=== PATIENT | male | born 1970 | race Two or more races ===

== ENCOUNTER 2024-04-12 12:19 | Emergency (ER) | payer MEDICAID, OTHER ==
[~2024-04-12] VITALS: Ht 190.5 cm; Wt 52.0 kg
--- NOTE | 2024-04-12 15:07 | ED.PDOC ---
General HPI Comments A 53 YEAR OLD MALE PRESENTS TO THE ED WITH CHIEF COMPLAINT OF HEMATURIA. PATIENT REPORTS THAT HE HAS BEEN EXPERIENCING HEMATURIA WITH SOME DYSURIA FOR THE PAST 2 DAYS. ALSO, PT'S BLOOD SUGAR ELEVATED BECAUSE HE DID NOT TAKE HIS DM MEDICATION TODAY. PATIENT DENIES ANY ABDOMINAL PAIN, LOW BACK PAIN, N/V/D, DIZZINESS, FEVER, FLANK PAIN, OR CHILLS. NO OTHER SYMPTOMS REPORTED AT THIS TIME OF CARE. Chief Complaint: Urinary Time Seen by MD: 15:01 Reviewed notes: Nurses Notes, Medications, Allergies Home Meds Active Scripts Sulfamethoxazole W/Trimethopri (Bactrim Ds Tablet) 1 Tab Tb, 1 TAB PO BID for 10 Days, #20 TAB Prov:AGNIESZKA COLON 04/12/24 Information Source: Patient Mode of Arrival: Ambulatory Severity: Moderate Inability to void: None Timing: Days Duration: Since onset Prehospital treatment: None Onset: Spontaneous Symptoms: Dysuria, Hematuria History of: None Location: None Penile discharge: None Modifying factors: None associated signs and symptoms: Dysuria, Hematuria Past Medical History PAST MEDICAL HISTORY: Denies Surgical History: Denies all surgeries Family History Family History: Reviewed,noncontributory to illness Social History Smoker: Non-Smoker Alcohol: Denies ETOH Use Drugs: Denies Drug Use Lives In: Home Constitutional: denies: chills, diaphoresis, fatigue, fever, malaise, sweats, weakness, others EENTM: denies: blurred vision, double vision, ear bleeding, ear discharge, ear drainage, ear pain, ear ringing, eye pain, eye redness, hearing loss, mouth pain, mouth swelling, nasal discharge, nose bleeding, nose congestion, nose pain, photophobia, tearing, throat pain, throat swelling, voice changes, others Respiratory: denies: cough, hemoptysis, orthopnea, SOB at rest, shortness of breath, SOB with excertion, stridor, wheezing, others Cardiovascular: denies: chest pain, dizzy spells, diaphoresis, Dyspnea on exertion, edema, irregular heart beat, left arm pain, lightheadedness, palpitations, PND, syncope, others Gastrointestinal: denies: abdomen distended, abdominal pain, blood streaked bowels, constipated, diarrhea, dysphagia, difficulty swallowing, hematemesis, melena, nausea, poor appetite, poor fluid intake, rectal bleeding, rectal pain, vomiting, others Genitourinary: reports: burning, dysuria, frequency, hematuria, urgency; denies: flank pain, incontinence, penile discharge, penile sore, pain, testicle pain, testicle swelling, others Neurological: denies: dizziness, fainting, headache, left sided numbness, left sided weakness, numbness, paresthesia, pre-existing deficit, right sided numbness, right sided weakness, seizure, speech problems, tingling, tremors, weakness, others Musculoskeletal: denies: back pain, gout, joint pain, joint swelling, muscle pain, muscle stiffness, neck pain, others Integumetry: denies: bruises, change in color, change in hair/nails, dryness, laceration, lesions, lumps, rash, wounds, others Allergic/Immunocompromised: denies: Difficulty Healing, Frequent Infections, Hives, Itching, others Hematologic/Lymphatic: denies: anemia, blood clots, easy bleeding, easy bruising, swollen glands, others Endocrine: denies: excessive hunger, excessive sweating, excessive thirst, excessive urination, flushing, intolerance to cold, intolerance to heat, unexplained weight gain, unexplained weight loss, others Psychiatric: denies: anxiety, bipolar disorder, depression, hopeless, panic disorder, schizophrenia, sleepless, suicidal, others All Other Systems: Reviewed and Negative Physical Exam General Appearance: No Apparent Distress, Normal HEENT: Normal ENT Inspection, PERRL/EOMI Neck: Full Range of Motion, Non-Tender, Normal, Normal Inspection Respiratory: Chest Non-Tender, Lungs Clear, No Accessory Muscle Use, No Respiratory Distress, Normal Breath Sounds Cardiovascular: No Edema, No JVD, No Murmur, No Gallop, Normal Peripheral Pulses, Regular Rate/Rhythm Breast Exam: Deferred Gastrointestinal: No Organomegaly, Non Tender, No Pulsatile Mass, Normal Bowel Sounds, Soft Genitalia: Deferred Pelvic: Deferred Rectal: Deferred Extremities: No calf tenderness, Normal capillary refill, Normal inspection, Normal range of motion, Non-tender, No pedal edema Musculoskeletal : Apperance: Normal Neurologic: Alert, rail engineer II-XII nml as Tested, No Motor Deficits, Normal Affect, Normal Mood, No Sensory Deficits Cerebellar Function: Normal Reflexes: Normal Skin: Dry, Normal Color, Warm Lymphatic: No Adenopathy Was a procedure done? Was a procedure done?: No Differential Diagnosis Kidney stone (Female): N/A Urinary Problem (Male): Urethritis, Urinary Retention, Urolithiasis, UTI X-Ray, Labs, Meds, VS Vital Signs Date Time Temp Pulse Resp B/P (MAP) Pulse Ox O2 Delivery O2 Flow Rate FiO2 04/12/24 16:34 97.3 104 20 113/70 (84) 20 97.3 04/12/24 16:34 104 20 97 Room Air 04/12/24 13:46 98.2 118 20 132/90 (104) 98 Lab Test 04/12/24 12:40 Range/Units Urine Color Yellow Yellow Urine Clarity Turbid H Clear Urine pH 5.5 5.0-9.0 Urine Specific [place] 1.022 1.001-1.035 Urine Protein 2+ H Negative Urine Ketones Trace Negative Urine Blood 3+ H Negative /uL Urine Nitrite Negative Negative Urine Bilirubin Negative Negative Urine Urobilinogen 4 H Negative mg/dL Urine Leukocyte Esterase 1+ Negative /uL Urine RBC 100 0 - 3 /hpf Urine WBC 57 0 - 3 /hpf Urine Squamous Epithelial Cells Few <5 /hpf Urine Bacteria Many H None Seen /hpf Urine Hyaline Casts Few 0 - 2 /lpf Urine Mucus Few None Seen Urine Glucose 4+ H Normal mg/dL Current Medications Medications (Trade) Dose Ordered Sig/Angel Route Start Time Stop Time Status Last Admin Ceftriaxone Sodium (Rocephin) 1,000 mg ONCE ONCE IM 04/12/24 16:15 04/12/24 16:16 DC 04/12/24 16:29 Insulin Human Regular (InsuLIN R) 8 units ONCE ONCE SC 04/12/24 16:45 04/12/24 16:46 DC 04/12/24 16:45 X-Ray, Labs, Meds, VS Comment - I reviewed the following notes from patient's past medical encounters: NA - The following tests were ordered, and results were reviewed by me: UA - Additional information was gathered from interviewing the following independent Historian: NA - I reviewed and agreed with the following test results read by other provider: UA - I discussed treatments and results with medical personnel and FAMILY. TREATMENT: ROCEPHIN 1G IM, INSULIN 8 UNITS SUBQ. Time of 1ST Reevaluation: 18:14 Reevaluation 1ST: Improved Patient Education/Counseling: Diagnosis, Treatment, Need For Follow Up Family Education/Counseling: Diagnosis, Treatment, Need For Follow Up, No Family Present Medical Screening: No EMC Exist At This Time Departure 1 Departure Time of Disposition: 18:20 Impression: Primary Impression: UTI (urinary tract infection) Qualified Codes: N39.0 - Urinary tract infection, site not specified; R31.9 - Hematuria, unspecified Additional Impressions: Hx of diabetes mellitus Noncompliance Disposition: HOME / SELF CARE / HOMELESS Condition: Stable Additional Instructions: F/U PCP IN 2 DAYS RECHECK. IF CONDITION BECOME WORSE, RETURN TO ED [facility]. e-Prescriptions Sulfamethoxazole W/Trimethopri (Bactrim Ds Tablet) 1 Tab Tb 1 TAB PO BID for 10 Days, #20 TAB Prov: AGNIESZKA COLON 04/12/24 Discharged With: Self, Relative Critical Care Note Critical Care Time?: No Stability Stability form required: No Heart Score Heart Score: Heart Score Response (Comments) Value History N/A 0 EKG N/A 0 Age N/A 0 Risk Factors N/A 0 Troponin N/A 0 Total 0 I personally scribed for AGNIESZKA COLON ([email or web address]) on 04/12/24 at 15:07. Electronically submitted by Cornell Reyna ([email or web address]). I personally scribed for AGNIESZKA COLON ([email or web address]) on 04/12/24 at 16:17. Electronically submitted by Cornell Reyna ([email or web address]). I personally scribed for AGNIESZKA COLON ([email or web address]) on 04/12/24 at 16:58. Electronically submitted by Cornell Reyna ([email or web address]). AGNIESZKA COLON Apr 12, 2024 15:07
[2024-04-12 16:05] LABS: Urine Bacteria MANY /hpf (None Seen); Urine Blood 3+ /uL (Negative); Urine Clarity Turbid (Clear); Urine Color Yellow (Yellow); Urine Hyaline Cast FEW /lpf (0 - 2); Urine Mucus FEW (None Seen); Urine Protein, UAD 2+ (Negative); Urine Specific Gravity 1.022 (1.001-1.035); Urine Squamous Epithelial Cell FEW /hpf (<5); Urine Urobilinogen 4 mg/dL (Negative); Urine WBC 57 /hpf (0 - 3); Urine pH 5.5 (5.0-9.0)
[2024-04-12] MEDS ORDERED: BACDST PO (16:18)
[2024-04-12] MEDS: cefTRIAXone SOD 1,000 MG VL IM ONE (16:29)
[2024-04-12 16:34] VITALS: BP 113/70; PULSE 104; RESP 20; TEMP 97.3; O2SAT 97
[2024-04-12] MEDS: InsuLIN REG 1unit/0.01ml Soln (100units/ml) SC ONE (16:45)
== END 2024-04-12 18:16 | disposition home or self-care (01) ==
LOC: ER 12:19
DX: N39.0 Urinary tract infection, site not specified (principal); E11.9 Type 2 diabetes mellitus without complications; Z91.199 Patient's noncompliance with other medical treatment and regimen due to unspecified reason; Z79.899 Other long term (current) drug therapy
CPT/HCPCS: 81001; 96372; 99284; J0696; J1815

== ENCOUNTER 2024-12-14 07:45 | Emergency (ER) | payer MEDICAID ==
[~2024-12-14] VITALS: Ht 190.5 cm; Wt 46.0 kg
[~2024-12-14 07:45] MED LIST: BACDST PO
[2024-12-14 08:26] VITALS: BP 133/76; RESP 16; TEMP 96; O2SAT 100
[2024-12-14 08:28] VITALS: PULSE 105
--- NOTE | 2024-12-14 08:45 | ED.PDOC ---
History of Present Illness(SKN HPI Comments 54 y.o male presents to the ED for an evaluation of an abscess localized at the top of his head that started 1 month ago. Patient reports pending referral to have abscess drained by PCP but states today he woke up and noticed pus drainage. He denies any fever, chills, nausea, vomiting, bleeding, or head tr auma. Chief Complaint: Abscess Time Seen by MD: 08:33 History of Present Illness: Nurses Notes, Medications, Allergies Home Meds Active Scripts Cefdinir (Cefdinir) 300 Mg Cap, 1 CAP PO BID for 7 Days, #14 CAP Prov:MONICA WATKINS MD 12/14/24 Sulfamethoxazole W/Trimethopri (Bactrim Ds Tablet) 1 Tab Tb, 1 TAB PO BID for 10 Days, #20 TAB Prov:AGNIESZKA COLON 04/12/24 Information Source: Patient Mode of Arrival: Ambulatory Severity: Moderate Duration: Since onset Location: Head Mechanism: Preceding Wound Wound Type: Abscess Past Medical History PAST MEDICAL HISTORY: DM, High Lipids Surgical History: Denies all surgeries Family History Family History: Reviewed,noncontributory to illness Social History Smoker: Non-Smoker Alcohol: Denies ETOH Use Drugs: Denies Drug Use Lives In: Home Constitutional: denies: chills, diaphoresis, fatigue, fever, malaise, sweats, weakness, others EENTM: denies: blurred vision, double vision, ear bleeding, ear discharge, ear drainage, ear pain, ear ringing, eye pain, eye redness, hearing loss, mouth p ain, mouth swelling, nasal discharge, nose bleeding, nose congestion, nose pain, photophobia, tearing, throat pain, throat swelling, voice changes, others Respiratory: denies: cough, hemoptysis, orthopnea, SOB at rest, shortness of br eath, SOB with excertion, stridor, wheezing, others Cardiovascular: denies: chest pain, dizzy spells, diaphoresis, Dyspnea on exertion, edema, irregular heart beat, left arm pain, lightheadedness, palpitations, PND, syncope, others Gastrointestinal: denies: abdomen distended, abdominal pain, blood streaked bowels, constipated, diarrhea, dysphagia, difficulty swallowing, hematemesis, melena, nausea, poor appetite, poor fluid intake, rectal bleeding, rectal pain, vomiting, others Genitourinary: denies: burning, dysuria, flank pain, frequency, hematuria, incontinence, penile discharge, penile sore, pain, testicle pain, testicle swelling, urgency, others Neurological: denies: dizziness, fainting, headache, left sided numbness, left sided weakness, numbness, paresthesia, pre-existing deficit, right sided numbness, right sided weakness, seizure, speech problems, tingling, tremors, weakness, others Musculoskeletal: denies: back pain, gout, joint pain, joint swelling, muscle pain, muscle stiffness, neck pain, others Integumetry: reports: wounds (abscess to the head- occipital region ); denies: bruises, change in color, change in hair/nails, dryness, laceration, lesions, lumps, rash, others Allergic/Immunocompromised: denies: Difficulty Healing, Frequent Infections, Hives, Itching, others Hematologic/Lymphatic: denies: anemia, blood clots, easy bleeding, easy bruising, swollen glands, others Endocrine: denies: excessive hunger, excessive sweating, excessive thirst, excessive urination, flushing, intolerance to cold, intolerance to heat, unexplained weight gain, unexplained weight loss, others Psychiatric: denies: anxiety, bipolar disorder, depression, hopeless, panic disorder, schizophrenia, sleepless, suicidal, others All Other Systems: Reviewed and Negative Physical Exam General Appearance: No Apparent Distress, Thin HEENT: Normal ENT Inspection, PERRL/EOMI, Other (Large fluctuant abscess of the top of his head) Neck: Full Range of Motion, Non-Tender, Normal, Normal Inspection Respiratory: Chest Non-Tender, Lungs Clear, No Accessory Muscle Use, No Respiratory Distress, Normal Breath Sounds Cardiovascular: No Edema, No JVD, No Murmur, No Gallop, Normal Peripheral Pulses, Regular Rate/Rhythm Breast Exam: Deferred Gastrointestinal: No Organomegaly, Non Tender, No Pulsatile Mass, Normal Bowel Sounds, Soft Genitalia: Deferred Pelvic: Deferred Rectal: Deferred Extremities: No calf tenderness, Normal capillary refill, Normal inspection, Normal range of motion, Non-tender, No pedal edema Neurologic: Alert, payroll and benefits coordinator II-XII nml as Tested, No Motor Deficits, Normal Affect, Normal Mood, No Sensory Deficits Cerebellar Function: Normal Reflexes: Normal Skin: Dry, Normal Color, Warm Lymphatic: No Adenopathy Was a procedure done? Was a procedure done?: Yes Sedation Sedation?: No Incision and Drainage Location top of the head Anesthetic: Lidocaine Preparation: Wound white work cleaner Incision and Wound: Pus, Blood, Irrigated Informed consent obtained: No Risks/benefits/alt described: No Notes Patient accepted the procedure well Differential Diagnosis (INTG) Differential Diagnosis: N/A Differential Diagnosis: Abscess Differential Diagnosis: N/A Abscess: Abscess, Bacteremia, N/A Differential Diagnosis: N/A X-Ray, Labs, Meds, VS Vital Signs Date Time Temp Pulse Resp B/P (MAP) Pulse Ox O2 Delivery O2 Flow Rate FiO2 12/14/24 08:28 105 12/14/24 08:26 96.0 105 16 133/76 (95) 100 96.0 12/14/24 07:49 97.4 108 16 124/78 100 97.4 Time of 1ST Reevaluation: 08:36 Reevaluation 1ST: Unchanged Time of 2ND Reevaluation: 09:10 Reevaluation 2ND: Improved Consultation: PCP Patient Education/Counseling: Diagnosis, Treatment, Prognosis Family Education/Counseling: Diagnosis, Treatment, Prognosis SEPSIS Sepsis Screen Date sepsis recognized/suspect: Dec 14, 2024 Time Sepsis recognized/suspect: 0753 Recent Procedure: No On Antibiotic Therapy: No Respiratory Rate >20: No Heart Rate >90: Yes Temp<36 C (96.8 F) or >38.3 C: No SBP <90 or MAP <65 mmHG: No New Acute Mental Status Change: No Is the patient on CPAP, BIPAP,: No Physician Orders Peroxide (12/14/24 08:42) 4X4 (12/14/24 08:42) Sterile Gloves (12/14/24 08:42) [place] (12/14/24 08:42) Vital Signs Date Time Temp Pulse Resp B/P (MAP) Pulse Ox O2 Delivery O2 Flow Rate FiO2 12/14/24 08:28 105 12/14/24 08:26 96.0 105 16 133/76 (95) 100 96.0 12/14/24 07:49 97.4 108 16 124/78 100 97.4 Departure 1 Departure Time of Disposition: 09:15 Impression: Primary Impression: Abscess of scalp Additional Impression: Hx of diabetes mellitus Disposition: 01 HOME / SELF CARE / HOMELESS Condition: Fair Additional Instructions: Keep clean and dry with peroxide e-Prescriptions Cefdinir (Cefdinir) 300 Mg Cap 1 CAP PO BID for 7 Days, #14 CAP Prov: MONICA WATKINS MD 12/14/24 Discharged With: Self Critical Care Note Critical Care Time?: No Stability Stability form required: No I personally scribed for MONICA WATKINS MD ([email or web address]) on 12/14/24 at 08:45. Electronically submitted by Joslyn Fam ([facility]). MONICA WATKINS MD Dec 14, 2024 08:45
[2024-12-14] MEDS: LIDOCAINE 2%HCL (LOCAL ANESTH.) INJ 20ML MDV ID ONE (09:08)
[2024-12-14] MEDS: BACITRACIN TOP OINT 1 UD PKG TOP ONE (09:09)
[2024-12-14] MEDS ORDERED: CEFD300C2 PO (09:12)
== END 2024-12-14 09:24 | disposition home or self-care (01) ==
LOC: ER 07:45
DX: L02.811 Cutaneous abscess of head [any part, except face] (principal); E11.9 Type 2 diabetes mellitus without complications
CPT/HCPCS: 10060